=== PATIENT | male | born 1955 | race Two or more races ===

== ENCOUNTER 2018-06-23 14:27 | Emergency (ER) | payer OTHER ==
[~2018-06-23] VITALS: Ht 157.5 cm; Wt 72.6 kg
[2018-06-23 14:40] VITALS: BP 155/87
--- NOTE | 2018-06-23 14:40 | NUR ---
ED Nurse Note: pt walked into ED c/o left 3rd finger lac and pain, pt states he cut his finger today with knife. Pt AA&ox4, gcs= 15 skin warm and dry, noted lac with small amount of blood on left 3rd finger, CMs intact, cap refill <3 sec. will continue to monitor.
[2018-06-23] MEDS ORDERED: Hydrogen Peroxide 473ml Bottle TOPIC ONE (15:30)
[2018-06-23] MEDS ORDERED: Lidocaine 1% Plain 30 ml INJ ONE (16:30)
--- NOTE | 2018-06-23 17:00 | NUR ---
ED Nurse Note: suture done by PA, wound cleaned and dressed by cdl service technician, pt tolerated well.
[2018-06-23] MEDS ORDERED: BACITRACIN-P28.35 GM TP (17:27)
[2018-06-23] MEDS ORDERED: TYLENOL EXTRA500 MG ORAL (17:27)
[2018-06-23] MEDS ORDERED: CEPHALEXIN500 MG ORAL (17:27)
--- NOTE | 2018-06-23 17:27 | Emergency Room Report ---
History of Present Illness General Chief Complaint: Laceration Source: Patient Present Illness HPI 62-year-old male presents to the emergency department complaining of 8 out of 10 in severity pain laceration to the left third digit x one day. Patient reports that injury occurred at work. Patient reports that his nail was also involved. She states that he believes bleeding has subsided at this time however he is unsure. Patient states he is up-to-date with tetanus vaccinations he denies taking blood thinning medications. Denies bony tenderness states that injury happened with a knife, and denies paresthesias or loss of gross motor movement to the affected finger. Allergies: Coded Allergies: No Known Allergies (Unverified , 06/23/18) Patient History Past Medical History: see triage record Past Surgical History: none Pertinent Family History: none Immunizations: UTD Reviewed Nursing Documentation: PMH: Agreed; PSxH: Agreed Nursing Documentation-PM Past Medical History: No History, Except For Hx Hypertension: Yes Hx Diabetes: Yes Review of Systems All Other Systems: negative except mentioned in HPI Physical Exam Vital Signs Date Time Temp Pulse Resp B/P (MAP) Pulse Ox O2 Delivery O2 Flow Rate FiO2 06/23/18 14:37 98.6 60 18 171/87 98 Room Air Sp02 EP Interpretation: reviewed, normal General Appearance: no apparent distress, alert, GCS 15, non-toxic Head: normocephalic, atraumatic Eyes: bilateral eye normal inspection, bilateral eye PERRL ENT: hearing grossly normal, normal voice Neck: full range of motion Respiratory: lungs clear, normal breath sounds, speaking full sentences Cardiovascular #1: regular rate, rhythm, normal capillary refill Musculoskeletal: back normal, gait/station normal, normal range of motion, non- tender Neurologic: alert, oriented x3, responsive, motor strength/tone normal, sensory intact, speech normal, grossly normal Psychiatric: judgement/insight normal Skin: normal color, no rash, warm/dry, well hydrated, laceration - Left 3rd digit avulsion laceration involving a small portion of the nail and nail bed approx 2 cm in length Procedures Laceration/Wound Repair Laceration/Wound Repair : Consent: Verbal Wound Location: upper extremity - LMF Wound's Depth, Shape: flap, nail-avulsed Wound Length (cm): 2 Wound Explored: clean Betadine Prep?: Yes Anesthesia: 1% Lidocaine Volume Anesthetic (ccs): 5 Wound Debrided: minimal - portion of the nail removed. Wound Repaired With: sutures Suture Size/Type: 5:0 Number of Sutures: 4 Sterile Dressing Applied?: Yes Splint Applied?: Yes Sling Applied?: No Patient Tolerated: Well Complications: None Medical Decision Making PA Attestation Dr. Marcial is my supervising Physician whom patient management has been discussed with. Diagnostic Impression: Primary Impression: Nail avulsion, finger Qualified Codes: S61.309A - Unspecified open wound of unspecified finger with damage to nail, initial encounter Additional Impression: Accidental laceration ER Course 62-year-old male presents to the emergency department complaining of 8 out of 10 in severity pain laceration to the left third digit x one day. Patient reports that injury occurred at work. Patient reports that his nail was also involved. She states that he believes bleeding has subsided at this time however he is unsure. Patient states he is up-to-date with tetanus vaccinations he denies taking blood thinning medications. Denies bony tenderness states that injury happened with a knife, and denies paresthesias or loss of gross motor movement to the affected finger. Ddx considered but are not limited to laceration, tendon injury, cellulitis, amputation Vital signs: are WNL, pt. is afebrile H&PE are most consistent with: Left 3rd digit avulsion laceration involving a small portion of the nail and nail bed approx 2 cm in length ORDERS: none required at this time, the diagnosis is clinical ED INTERVENTIONS: - The wound was copiously irrigated with normal saline, and explored for foreign body for which no FB was found. - pt. is anesthetized with 1%lidocaine w. epi.- using digital block method - The injured portion of the nail was removed to expose the nail bed. - The wound was approximated and closed using 4 interrupted 5.0 Prolene sutures. -Bacitracin and sterile dressing is applied. - Finger Splint applied to the Left middle finger by mammography technologist. Pt. remains neurovascularly intact. Discussed with patient: That we make every effort to approximate the laceration as best as we can so that scarring will be as cosmetically pleasing as possible with our limited cosmetic skill set in the Emergency dept. Regardless of our best efforts there will be scarring after laceration repair. The extent of scarring is unknown at this time. DISCHARGE: At this time pt. is stable for d/c to home. Will provide printed patient care instructions, and any necessary prescriptions. Care plan and follow up instructions have been discussed with the patient prior to discharge. Last Vital Signs Date Time Temp Pulse Resp B/P (MAP) Pulse Ox O2 Delivery O2 Flow Rate FiO2 06/23/18 14:40 98.6 78 18 155/87 98 Room Air Disposition: HOME, SELF-CARE Condition: Stable Scripts Acetaminophen* (TYLENOL EXTRA STRENGTH*) 500 Mg Tablet 500 MG ORAL Q6H, #20 TAB 0 Refills Prov: Lana Alonso 06/23/18 Bacitracin/Polymyxin B Sulfate (BACITRACIN-POLYMYXIN OINTMENT) 28.35 Gm Oint...g. 1 APPLIC TP BID, #28.3 GM Prov: Lana Alonso 06/23/18 Cephalexin* (KEFLEX*) 500 Mg Capsule 500 MG ORAL EVERY 12 HOURS for 7 Days, #14 CAP 0 Refills Prov: Lana Alonso 06/23/18 Referrals: NOT APPLICABLE THIS PATIENT,RE (PCP) Patient Instructions: Laceration Care, Adult, Nail Avulsion Additional Instructions: Take medications as directed. Sutures removed in 7 days Follow up with a Primary Care Provider in 3-5 days, even if your symptoms have resolved. --Please review list of primary care clinics, if you do not already have a primary care provider Return sooner to ED if new symptoms occur, or current symptoms become worse. - Please note that this Emergency Department Report was dictated using [employer] caulker technology software, occasionally this can lead to erroneous entry secondary to interpretation by the dictation equipment. Lana Alonso Jun 23, 2018 17:27
--- NOTE | 2018-06-23 18:30 | NUR ---
ED Nurse Note: Pt discharge instruction provided w/ prescription, id band removed, pt education done via discussion and handout, pt verbalized understanding and agrees with plan, pt advised to follow up with pcp regarding pt's condition, pt advised to return to ed if s/s worsen or new s/s develop.
[2018-06-23 18:52] VITALS: BP 145/68
== END 2018-06-23 18:54 | disposition home or self-care (01) ==
LOC: EMR 15:20
DX: S61.313A Laceration without foreign body of left middle finger with damage to nail, initial encounter (principal); W45.8XXA Other foreign body or object entering through skin, initial encounter; Y92.89 Other specified places as the place of occurrence of the external cause; Y99.0 Civilian activity done for income or pay; I10 Essential (primary) hypertension; E11.9 Type 2 diabetes mellitus without complications
CPT/HCPCS: 11730; 99283; J2001